=== PATIENT | female | born 1965 | race Caucasian/White ===

== ENCOUNTER → 2018-09-11 12:12 | Outpatient (ROUT) | payer OTHER, SELFPAY ==
[2018-09-11 12:18] LABS: Hematocrit 41.1 % (36-46); Hemoglobin 13.6 g/dL (12.0-16.0); Mean Corpuscular Hemoglobin 26.5 PG (26-34); Mean Corpuscular Volume 79.8 fL (80-100); Red Blood Cell Count 5.15 X10^6/uL (4.0-5.2); White Blood Cell Count 4.8 X10^3/uL (4.5-11.0)
[2018-09-11 12:19] LABS: Add Manual Diff / Slide Review NO; Basophils Percent Auto 1.4 % (0-2); Eosinophils Percent Auto 4.2 % (2-4); Lymphocytes Percent Auto 19.8 % (25-40); Mean Corpuscular HGB Conc 33.2 % (30-36); Monocytes Percent Auto 10.7 % (3-14); Neutrophils Percent Auto 63.9 % (50-75); Platelet Count 238 X10^3/uL (150-400); Red Cell Distribution Width 22.7 % (11.6-14.8)
[2018-09-11 12:20] LABS: Blood Urea Nitrogen 4 mg/dL (7-17); Calcium 8.5 mg/dL (8.4-10.2); Carbon Dioxide 32 mmol/L (22-32); Chloride 92 mmol/L (98-107); Estimated Glomerular Filt Rate > 60.0 mL/min (>60); Glucose 78 mg/dL (70-100); Phosphorous 3.7 mg/dL (2.5-4.5); Potassium 3.7 mmol/L (3.4-5.1); Sodium 133 mmol/L (137-145)
[2018-09-11 12:21] LABS: Alanine Aminotransferase 21 IU/L (9-52); Albumin 3.6 g/dL (3.5-5.0); Albumin Globulin Ratio 1.4 (1.0-2.8); Alkaline Phosphatase 92 U/L (38-126); Aspartate Aminotransferase 27 IU/L (14-36); Bilirubin Total 0.6 mg/dL (0.2-1.3); Globulin 2.5 g/dL (1.7-4.1); HEMOLYSIS 0 (0-50); Magnesium 1.9 mg/dL (1.6-2.3); Total Protein 6.1 g/dL (6.3-8.2); Triglycerides 57 mg/dL (35-150)
== END ==
PROVIDERS: Family Provider Internal Medicine; PCP Internal Medicine; Visit Provider Internal Medicine
DX: R10.13 Epigastric pain (principal); G35 Multiple sclerosis
CPT/HCPCS: 80053; 83735; 84100; 84478; 85025

== ENCOUNTER → 2018-09-24 14:34 | Outpatient (CLI) | payer OTHER, SELFPAY ==
[2018-09-24 15:32] LABS: Add Manual Diff / Slide Review NO; Basophils Absolute Auto 100 /uL (0-100); Basophils Percent Auto 1.2 % (0-2); Eosinophils Absolute Auto 600 /uL (0-450); Eosinophils Percent Auto 9.5 % (2-4); Hematocrit 39.1 % (36-46); Hemoglobin 13.3 g/dL (12.0-16.0); Lymphocytes Absolute Auto 1300 /uL (1100-4500); Lymphocytes Percent Auto 21.5 % (25-40); Mean Corpuscular HGB Conc 34.1 % (30-36); Mean Corpuscular Hemoglobin 27.1 PG (26-34); Mean Corpuscular Volume 79.3 fL (80-100); Monocytes Absolute Auto 600 /uL (0-900); Monocytes Percent Auto 9.6 % (3-14); Neutrophils Absolute Auto 3400 /uL (1500-7000); Neutrophils Percent Auto 58.2 % (50-75); Platelet Count 325 X10^3/uL (150-400); Red Blood Cell Count 4.93 X10^6/uL (4.0-5.2); Red Cell Distribution Width 20.4 % (11.6-14.8); White Blood Cell Count 5.9 X10^3/uL (4.5-11.0)
[2018-09-24 16:01] LABS: Alanine Aminotransferase 24 IU/L (9-52); Albumin 3.5 g/dL (3.5-5.0); Albumin Globulin Ratio 1.2 (1.0-2.8); Alkaline Phosphatase 126 U/L (38-126); Aspartate Aminotransferase 45 IU/L (14-36); Bilirubin Total 0.5 mg/dL (0.2-1.3); Blood Urea Nitrogen 6 mg/dL (7-17); Calcium 9.3 mg/dL (8.4-10.2); Carbon Dioxide 34 mmol/L (22-32); Chloride 94 mmol/L (98-107); Estimated Glomerular Filt Rate > 60.0 mL/min (>60); Globulin 2.9 g/dL (1.7-4.1); Glucose 94 mg/dL (70-100); HEMOLYSIS 33 (0-50); Magnesium 2.1 mg/dL (1.6-2.3); Phosphorous 3.4 mg/dL (2.5-4.5); Potassium 3.5 mmol/L (3.4-5.1); Sodium 136 mmol/L (137-145); Total Protein 6.4 g/dL (6.3-8.2); Triglycerides 134 mg/dL (35-150)
[2018-09-24 16:16] LABS: Anisocytosis 2+; Poikilocytosis 1+
[2018-09-24 16:17] LABS: Ovalocytes 1+
== END ==
PROVIDERS: PCP Internal Medicine; Visit Provider Internal Medicine
DX: R13.10 Dysphagia, unspecified (principal); G35 Multiple sclerosis
CPT/HCPCS: 36415; 80053; 83735; 84100; 84478; 85025

== ENCOUNTER → 2018-09-27 17:17 | Outpatient (CLI) | payer OTHER, SELFPAY ==
[2018-09-28 09:21] LABS: Enterococcus species Not Detected (Not Detect)
[2018-09-28 09:22] LABS: Acinetobacter baumannii Not Detected (Not Detect); Candida albicans Not Detected (Not Detect); Candida glabrata Not Detected (Not Detect); Candida krusei Not Detected (Not Detect); Candida parapsilosis Not Detected (Not Detect); Candida tropicalis Not Detected (Not Detect); E. coli Not Detected (Not Detect); Enterobacter cloacae complex Not Detected (Not Detect); Enterobacteriaceae species Not Detected (Not Detect); Haemophilus influenzae Not Detected (Not Detect); KPC (carbapenem-resist gene) Not Detected (Not Detect); Listeria monocytogenes Not Detected (Not Detect); Neisseria meningitidis Not Detected (Not Detect); Proteus species Not Detected (Not Detect); Pseudomonas aeruginosa Not Detected (Not Detect); Serratia marcescens Not Detected (Not Detect); Staphylococcus species Detected (Not Detect); Streptococcus agalactiae (Gr B Not Detected (Not Detect); Streptococcus pneumonia Not Detected (Not Detect); Streptococcus pyogenes (Gr A) Not Detected (Not Detect); Streptococcus species Not Detected (Not Detect)
[2018-09-28 09:23] LABS: Methicillin-resistant gene Detected (Not Detect)
== END ==
PROVIDERS: PCP Internal Medicine; Visit Provider Internal Medicine
DX: R13.10 Dysphagia, unspecified (principal); G35 Multiple sclerosis
CPT/HCPCS: 87040; 87077; 87150; 87186; 87205

== ENCOUNTER → 2018-10-04 11:51 | Outpatient (ROUT) | payer OTHER, SELFPAY ==
[2018-10-04 12:00] LABS: Add Manual Diff / Slide Review NO; Basophils Absolute Auto 100 /uL (0-100); Basophils Percent Auto 0.7 % (0-2); Eosinophils Absolute Auto 400 /uL (0-450); Eosinophils Percent Auto 5.2 % (2-4); Hematocrit 38.9 % (36-46); Hemoglobin 13.4 g/dL (12.0-16.0); Lymphocytes Absolute Auto 1600 /uL (1100-4500); Lymphocytes Percent Auto 20.7 % (25-40); Mean Corpuscular HGB Conc 34.5 % (30-36); Mean Corpuscular Hemoglobin 27.2 PG (26-34); Mean Corpuscular Volume 78.8 fL (80-100); Monocytes Absolute Auto 600 /uL (0-900); Monocytes Percent Auto 7.5 % (3-14); Neutrophils Absolute Auto 5200 /uL (1500-7000); Neutrophils Percent Auto 65.9 % (50-75); Platelet Count 430 X10^3/uL (150-400); Red Blood Cell Count 4.94 X10^6/uL (4.0-5.2); Red Cell Distribution Width 20.2 % (11.6-14.8); White Blood Cell Count 7.8 X10^3/uL (4.5-11.0)
[2018-10-04 12:15] LABS: Alanine Aminotransferase 19 IU/L (9-52); Albumin 3.6 g/dL (3.5-5.0); Albumin Globulin Ratio 1.2 (1.0-2.8); Alkaline Phosphatase 244 U/L (38-126); Aspartate Aminotransferase 17 IU/L (14-36); BUN Creatinine Ratio 11.4 (6-22); Bilirubin Total 0.4 mg/dL (0.2-1.3); Blood Urea Nitrogen 8 mg/dL (7-17); Calcium 9.2 mg/dL (8.4-10.2); Carbon Dioxide 33 mmol/L (22-32); Chloride 94 mmol/L (98-107); Estimated Glomerular Filt Rate > 60.0 mL/min (>60); Glucose 120 mg/dL (70-100); HEMOLYSIS < 15 (0-50); Magnesium 1.9 mg/dL (1.6-2.3); Phosphorous 3.2 mg/dL (2.5-4.5); Potassium 3.5 mmol/L (3.4-5.1); Sodium 137 mmol/L (137-145); Total Protein 6.6 g/dL (6.3-8.2); Triglycerides 144 mg/dL (35-150)
[2018-10-04 12:19] LABS: Vancomycin Trough 11.8 ug/mL (10-20)
[2018-10-04 12:23] LABS: Anisocytosis 1+
[2018-10-04 12:24] LABS: Poikilocytosis 1+
== END ==
PROVIDERS: PCP Internal Medicine; Visit Provider Internal Medicine
DX: R13.10 Dysphagia, unspecified (principal); G35 Multiple sclerosis
CPT/HCPCS: 80053; 80202; 83735; 84100; 84478; 85025

== ENCOUNTER 2018-10-06 07:44 | Day surgery (SDC) | payer OTHER, SELFPAY ==
[2018-10-06] VITALS (10 sets, daily range): BP systolic 95–129; BP diastolic 44–73; PULSE 59–115; RESP 11–20; TEMP 35.8–36.8; O2SAT 94–99; BMI 40.3; BMI 18.3
--- NOTE | 2018-10-06 | DI.RAD.S_ITS ---
PROCEDURE: XR CHEST FOR PICC 1V INDICATIONS: PICC PLACEMENT COMPARISON: [facility], , CHEST 1 VIEW, 05/20/2017, 16:03. FINDINGS: PICC was placed by the intravenous therapy team from the right side. Fluoroscopic spot film demonstrates tip of PICC projecting to the SVC. IMPRESSION: Tip of PICC line projects at the superior vena cava. Dictated by: Vincent Infante M.D. on 10/06/2018 at 18:53 Approved by: Vincent Infante M.D. on 10/06/2018 at 18:55
[2018-10-06 09:08] LABS: Add Manual Diff / Slide Review NO; Basophils Absolute Auto 100 /uL (0-100); Basophils Percent Auto 1.5 % (0-2); Eosinophils Absolute Auto 600 /uL (0-450); Eosinophils Percent Auto 7.7 % (2-4); Hematocrit 35.7 % (36-46); Hemoglobin 12.4 g/dL (12.0-16.0); Lymphocytes Absolute Auto 2500 /uL (1100-4500); Mean Corpuscular HGB Conc 34.8 % (30-36); Mean Corpuscular Hemoglobin 27.5 PG (26-34); Monocytes Absolute Auto 700 /uL (0-900); Monocytes Percent Auto 8.4 % (3-14); Neutrophils Absolute Auto 3900 /uL (1500-7000); Neutrophils Percent Auto 50.4 % (50-75); Platelet Count 434 X10^3/uL (150-400); Red Blood Cell Count 4.52 X10^6/uL (4.0-5.2); Red Cell Distribution Width 19.1 % (11.6-14.8); White Blood Cell Count 7.7 X10^3/uL (4.5-11.0)
[2018-10-06 09:23] LABS: Alanine Aminotransferase 12 IU/L (9-52); Albumin 3.7 g/dL (3.5-5.0); Albumin Globulin Ratio 1.1 (1.0-2.8); Alkaline Phosphatase 198 U/L (38-126); Aspartate Aminotransferase 16 IU/L (14-36); Bilirubin Total 0.3 mg/dL (0.2-1.3); Blood Urea Nitrogen 6 mg/dL (7-17); Calcium 9.1 mg/dL (8.4-10.2); Carbon Dioxide 32 mmol/L (22-32); Chloride 97 mmol/L (98-107); Estimated Glomerular Filt Rate > 60.0 mL/min (>60); Globulin 3.3 g/dL (1.7-4.1); Glucose 116 mg/dL (70-100); HEMOLYSIS < 15 (0-50); Potassium 3.3 mmol/L (3.4-5.1); Sodium 137 mmol/L (137-145)
[2018-10-06] MEDS: LORazepam 2 MG/ML INJ 1 MG IV (09:34)
--- NOTE | 2018-10-06 10:20 | PC.NURSE ---
1000- to room 105 for PICC placement with procedural sedation. Pt is AAO x3 and making needs known with clear/logical speech. Pt noted to have spastic chorea movements to all extremities and neck. Pt reports hx of MS. Baseline VS: T98.[address] RR 19 BP 117/60 (69) SPO2 97% RA ETCO2 41. Call placed to Dr. Santos requesting orders for procedural sedation. Dr. Santos to bedside ~[address]ICC in OR under anesthesia during already planned procedure. Pt transported back to acute care room in no acute distress via pt bed by coordinator and student nurses.
[2018-10-06] MEDS: LACTATED RINGERS 1,000 ML 100 ML IV (11:10)
[2018-10-06] MEDS: clonazePAM 0.5 MG TABLET 3 MG PO (12:54)
[2018-10-06] MEDS: BACLOFEN 10 MG TABLET 20 MG PO (12:55)
--- NOTE | 2018-10-06 13:00 | P.HP_ITS ---
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 Patient basically re ceives all of her nutrition and some of her medication through her IV. She has difficulty swallowing due to MS. Her gait stomach does not empty normally. She has been through. IV being fed via feeding tubes but those have failed and she continued to have aspiration. Therefore if she receives almost all of her nutrition now via IV and a Groshong catheter. The present catheter has been in over a year placed in April of 2017. She cares for at home and her and her a take care of the line. Recently she developed low-grade temperatures. She was cultured and found to have Staph. She has been treated with vancomycin but her low-grade temperatures have been completely gone away. Her line and is now having trouble aspirating and it is probably time to replace the line. It is been repaired twice. Patient History Medical History Anxiety (Acute) Aspiration into airway (Acute) Chronic fatigue (Acute) Depression (Acute) Difficulty swallowing (Acute) Easy bruisability (Acute) Frequent UTI (Acute) H/O: hysterectomy (Acute) History of muscle spasm (Acute) Hospice care (Acute) Multiple sclerosis (Acute ~2003) Pain (Acute) Pancreatitis (Acute) Problem with intravenous catheter (Acute) Syncope (Acute) Wheelchair bound (Acute) Surgical History Hx of cholecystectomy (Acute ~2008) Status post insertion of percutaneous endoscopic gastrostomy (PEG) tube (Acute) Social History household members: spouse Smoking Status: Current every day smoker alcohol intake: former Family & Social History Social History: household members spouse Safety & Behavioral: Feels Safe in Current Yes Environment Been Physically Hurt or No Threatened By a Person Suicidal Ideation Description None Suicide Plan Description No Plan Tobacco & Substance use: Tobacco type cigarettes Smoking Status Current every day smoker Smoking packs per day 1 alcohol intake former Substance Use Type marijuana Meds Home Medications Medication Instructions Recorded Confirmed Type [LIORESAL(BACLOFEN)] 20 mg PO BID #0 09/29/12 History albuterol sulfate [Ventolin HFA] 1 puff INH Q4HP #0 09/29/12 10/06/18 History POLYETHYLENE GLYCOL 3350 17 gm PO QDAY #0 02/05/16 History hydrochlorothiazide 25 mg PO QDAY #0 tab 02/05/16 History hydromorphone 16 mg PO Q4HP PRN #0 02/05/16 History lorazepam [Lorazepam Intensol] 1 ml PO PRN #0 02/05/16 History sennosides [senna] 10 mg PO #0 02/05/16 History [FENTANYL PATCH] 300 mcg TOPICAL Q72H #0 05/20/17 History baclofen 1 tab PO Q6H 10/06/18 10/06/18 History Allergies Allergy/AdvReac Type Severity Reaction Status Date / Time alteplase [ALTEPLASE] Allergy Severe severe Unverified 08/05/17 12:08 cardiac and resp. problems legumes [LEGUMES] Allergy Severe ANAPHYLAXIS Unverified 08/05/17 12:08 peanut Allergy Severe Anaphylaxis Verified 10/06/18 10:55 Sulfa (Sulfonamide Allergy Severe SOB/HIVES Unverified 08/05/17 12:08 Antibiotics) [SULFA (SULFONAMIDE ANTIBIOTICS)] latex [LATEX] Allergy Mild LONG-TERM Unverified 08/05/17 12:08 USE-RASH heparin [HEPARIN] AdvReac Intermediate HEART Unverified 08/05/17 12:08 RACE, 'BUTTERFLIES IN MY CHEST' Review of Systems Review of Systems Wheelchair-bound. Unable to walk. Severe muscle spasms controlled with medications. Never really still except when sleeping. No chest pain or heart problems that she is aware. No recent pulmonary infections. She has intermittent urinary tract infections. She may takes medicine for bladder spasms. Exam Vital Signs (past 8 hours): - 10/06/18 10:03 Pulse Rate 115 H Respiratory Rate 11 L Blood Pressure 117/60 Pulse Oximetry 97 Narrative Exam Narrative: Very pleasant and upbeat today. No apparent distress. She is alert and oriented x3. Her lungs are clear to auscultation no rales or rhonchi. Heart regular rate and rhythm without murmur gallop. No redness at the insertion site of the Groshong catheter. Objective Labs Result Diagrams: 10/06/18 08:58 10/06/18 08:58 Labs: Laboratory Results - last 24 hr 10/06/18 10/06/18 08:58 08:58 WBC 7.7 RBC 4.52 Hgb 12.4 Hct 35.7 L MCV 79.0 L MCH 27.5 MCHC 34.8 RDW 19.1 H Plt Count 434 H Neut % (Auto) 50.4 Lymph % (Auto) 32.0 [place] % (Auto) 8.4 Eos % (Auto) 7.7 H Baso % (Auto) 1.5 Neut # (Auto) 3900 Lymph # (Auto) 2500 [place] # (Auto) 700 Eos # (Auto) 600 H Baso # (Auto) 100 Sodium 137 Potassium 3.3 L Chloride 97 L Carbon Dioxide 32 BUN 6 L Creatinine 0.60 Estimated GFR > 60.0 BUN/Creatinine Ratio 10.0 Glucose 116 H Calcium 9.1 Total Bilirubin 0.3 AST 16 ALT 12 Alkaline Phosphatase 198 H Total Protein 7.0 Albumin 3.7 Globulin 3.3 Albumin/Globulin Ratio 1.1 Assessment & Plan Assessment & Plan narrative: Because of patient's very complicated medical problems, a complete lack of peripheral IV sites, she was brought in early for placement of a PICC line. Unfortunately her spasmodic condition precluded doing that even under sedation and so she will be taken to the operating room put to sleep. Unfortunately we must continue to use the Groshong until we have additional IV access. At that time of PICC line will be placed and we will remove the Groshong. At some future point we will replace the Groshong. We will complete her treatment of her Staph bacteremia. I have discussed this with her. Very few risks except for local infection of removing her Groshong at this time. All questions were answered. Quality VTE Deep Vein Thrombosis/Pulmonary Embolism Present on Admission: No
--- NOTE | 2018-10-06 13:00 | PM.PREOP ---
Pre-operative Note Interval Note History & Physical reviewed/Exam performed by Physician: Yes Changes to H&P: No
[2018-10-06] MEDS: PANTOPRAZOLE 40 MG VIAL IV (13:09)
[2018-10-06] MEDS: LACTATED RINGERS 1,000 ML 42 ML IV (15:39)
--- NOTE | 2018-10-06 16:12 | SUR.OPER ---
Supine on padded OR bed, head on pillow, arms secured on padded arm boards at <90 degrees abduction, legs uncrossed, safety belt at thigh, tape over blanket over lower legs.
--- NOTE | 2018-10-06 16:39 | PC.NURSE ---
Addendum entered by Heather Sanchez R.N. 10/06/18 19:51: Dr. Santos in to see pt and answers any further questions. Discharge orders now available and visible. These were processed and reviewed with pt and pt's spouse by Valerie morales RN. Pt left hospital with spouse via wheelchair in stable condition. Addendum entered by Heather Sanchez R.N. 10/06/18 19:42: Dr. Santos phones this abstract writer to state discharging pt to home, but is having difficulty generating this via computer. Verbal order to discharge to home received by this abstract writer. Attempted to locate insertion/care pamphlet from PICC placement without success. Printed PICC care information via [employer] and provided to pt and pt's spouse. Placed new cap on lumen accessed via surgery for iv fluids. Pt reports is connecting self to own iv fluids immediately. From web outlook email, also printed web site for [employer] picc video and provided to pt and pt's spouse for pt to review. Pt is awake, alert, conversant and desires to go home. Vital signs stable. Valerie Morales RN, reviewed discharge teaching materials with pt and pt's spouse in written and verbal format. Per Dr. Santos, pt is to resume normal meds, tpn, and vancomycin. Pt verbalizes understanding. Addendum entered by Heather Sanchez R.N. 10/06/18 19:08: Pt returned from PACU to room 204 awake, alert, conversant stating, I want to go home. No discharge orders yet in system, but pt assures this abstract writer Dr. Steinberg is working on it. Pt's spouse and service dog are in room. Offered pt meds that were not given while pt in surgery and pt declines. Pt explains to this abstract writer has nursing care available at home. Dual lumen PICC line RUE with dry and intact dressing. Original Note: Pt to O.R. @ beginning of shift.
[2018-10-06] MEDS: LIDOCAINE 1% W/EPI INJ 4 ML INJ (18:16)
[2018-10-06] MEDS: fentaNYL 100 MCG/2 ML INJ 50 MCG IV (18:45)
--- NOTE | 2018-10-06 18:57 | PM.OP.1 ---
Operative Date/Time/Diagnoses Date of procedure: 10/06/18 Time of procedure: 18:29 Pre-op diagnosis: Infected groshong catheter with Staph bacteremia Post-op diagnosis: same Procedure & Clinicians Procedure: Placement of a dual lumen PICC line and removal of the Groshong catheter. Same procedure as scheduled: Yes Indications: Need for IV access S patient is reliant on a central line for TPN for nutrition and for any other drug she needs. Surgeon: Naresh Santos Click Yes if Unassisted: Yes Anesthesia Type: MAC +/- Operative Notes Findings: Very difficult to get the tip of the dual lumen PICC to go into the superior vena cava. Groshong removed without difficulty. Closure Type: primary Specimen(s): none sent Applied: catheter (Dual lumen PICC in right basilic) Estimated Blood Loss (mL): 30 Procedure in detail: The PICC line nurse attempted placement of a catheter in the left arm. This was nonproductive and then placement in the right side was attempted. There was difficulty threading the guidewire. Therefore I scrubbed in and was able to with the nurse's assistance placed the guidewire into the vein appropriate vein. The needle was removed and the introducer and dilator were passed over it. Guidewire and the introducer were removed and the catheter had been cut and was threaded through the introducer. Under fluoroscopy the visualization the catheter persistently went into the neck. Multiple manipulations and passage of guidewires into the catheter were attempted before we were able to succeed in getting the tip to go into the superior vena cava. Both lines aspirated and then were flushed with heparinized saline. The line was secured. The area around the Groshong was prepped and draped. Local anesthetic was infiltrated. Incision was made directly over the palpable cuff. The cuff was dissected out from surrounding structures and the catheter removed without difficulty. The tract was ligated with a 3 0 Vicryl suture. The skin was loosely reapproximated with interrupted 4 0 vertical mattress nylon sutures. Dressing was applied. Patient was awakened and taken to the recovery area in good condition. Complications: none Condition: stable Disposition: PACU Plan for aftercare: Discharge later today
--- NOTE | 2018-10-06 19:37 | P.DS_ITS ---
History of Present Illness Chief complaint: [id number] updated to direct admit/OBS manager requirements Narrative: The patient is a woman who has Staph bacteremia presumed secondary to a Groshong catheter that has been in for over a year. Patient basically rec eives all of her nutrition and some of her medication through her IV. She has difficulty swallowing due to MS. Her gait stomach does not empty normally. She has been through. IV being fed via feeding tubes but those have failed and she continued to have aspiration. Therefore if she receives almost all of her nutrition now via IV and a Groshong catheter. The present catheter has been in over a year placed in April of 2017. She cares for at home and her and her a take care of the line. Recently she developed low-grade temperatures. She was cultured and found to have Staph. She has been treated with vancomycin but her low-grade temperatures have been completely gone away. Her line and is now having trouble aspirating and it is probably time to replace the line. It is been repaired twice. Discharge Providers Date of admission: 10/06/18 07:44 Discharge Date: 10/06/18 Primary care physician: Sterling Bhatt MD Consults: 10/06/18 08:00 Consult to PICC Line RN NOW Comment: 10/06/18 10:22 Consult to Respiratory Therapy Evaluate & Treat Comment: Physician Instructions: Evaluate and treat Discharge provider: Naresh Santos MD Summary Discharge Diagnosis: MS with severe alteration of body function essentially making her a paraplegic. Severe muscle spasms. Bladder spasms Bacteremia secondary to Groshong catheter present at admission Chronic pain treated with chronic narcotics Chronic aspiration when taking p.o.. Poor gastric emptying chronic [place] on TPN to provide 100% of nutritional requirements Limited peripheral IV access requiring central line Mild chronic anemia Hospital Course: With great difficulty a PICC line was placed and the Groshong was removed. She was discharged the same days admission. Status at Discharge Cognitive/behavioral status at discharge: oriented Functional status at discharge: wheelchair bound Overall status at discharge: patient is back to baseline Time Spent with Patient Less than 30 minutes Time spent discussing smoking cessation with patient: 3 to 10 minutes Exam Vital Signs (past 8 hours): - 10/06/18 11:35 10/06/18 15:28 10/06/18 18:29 Temperature 97.4 F L 97.3 F L 96.5 F L Pulse Rate 105 H 59 L 80 Respiratory Rate 20 18 20 Blood Pressure 104/67 129/72 104/62 Pulse Oximetry 97 96 98 10/06/18 18:34 10/06/18 18:40 10/06/18 18:45 Temperature Pulse Rate 82 82 69 Respiratory Rate 12 16 16 Blood Pressure 95/44 L 97/63 102/70 Pulse Oximetry 94 94 97 10/06/18 18:55 10/06/18 19:15 Temperature 97.1 F L Pulse Rate 85 76 Respiratory Rate 15 18 Blood Pressure 107/72 100/55 L Pulse Oximetry 97 94 Oxygen Delivery Method Room Air Narrative Exam Narrative: Lines are in good shape. She is alert and desires to go home Objective Labs Result Diagrams: 10/06/18 08:58 10/06/18 08:58 Labs: Laboratory Results - last 24 hr 10/06/18 10/06/18 08:58 08:58 WBC 7.7 RBC 4.52 Hgb 12.4 Hct 35.7 L MCV 79.0 L MCH 27.5 MCHC 34.8 RDW 19.1 H Plt Count 434 H Neut % (Auto) 50.4 Lymph % (Auto) 32.0 [place] % (Auto) 8.4 Eos % (Auto) 7.7 H Baso % (Auto) 1.5 Neut # (Auto) 3900 Lymph # (Auto) 2500 [place] # (Auto) 700 Eos # (Auto) 600 H Baso # (Auto) 100 Sodium 137 Potassium 3.3 L Chloride 97 L Carbon Dioxide 32 BUN 6 L Creatinine 0.60 Estimated GFR > 60.0 BUN/Creatinine Ratio 10.0 Glucose 116 H Calcium 9.1 Total Bilirubin 0.3 AST 16 ALT 12 Alkaline Phosphatase 198 H Total Protein 7.0 Albumin 3.7 Globulin 3.3 Albumin/Globulin Ratio 1.1 Discharge Plan Discharge Plan Patient Disposition: Home Discharge comment: Use your new PICC line in a similar way to your Groshong. There were 2 lumens. There little shut off snaps that you will see. This line is not sewn in so must be carefully manipulated so it does not pull out. The dressing should be changed by your nurses tomorrow. Discharge Med Rec/Prescriptions Prescriptions: Continued [LIORESAL(BACLOFEN)] 20 mg PO BID Qty: 0 RF: 0 albuterol sulfate [Ventolin HFA] 90 MCG/PUFF HFA aerosol inhaler 1 puff INH Q4HP Qty: 0 RF: 0 hydrochlorothiazide 25 MG tablet 25 mg PO QDAY Qty: 0 RF: 0 POLYETHYLENE GLYCOL 3350 17 gm PO QDAY Qty: 0 RF: 0 hydromorphone 4 MG tablet 16 mg PO Q4HP PRNQty: 0 RF: 0 lorazepam [Lorazepam Intensol] 2 MG/1 ML concentrate 1 ml PO PRN (Reason: Spasms) Qty: 0 RF: 0 sennosides [senna] 8.6 MG tablet 10 mg PO Qty: 0 RF: 0 [FENTANYL PATCH] 300 mcg Topical Q72H Qty: 0 RF: 0 baclofen 20 mg tablet 1 tab PO Q6H RF: 0 oxybutynin chloride 10 mg tablet extended release 24hr 1 tab PO DAILY RF: 0 Follow up/Referrals: Sterling Bhatt MD [Primary Care Provider] - Naresh Santos MD [Physician] - As previously scheduled (Please call my office to schedule an appointment to see me in about 10-12 days to get her stitches out. As an alternative, your nurses may be able to take them out.) Provider Discharge Instructions Diet comment: Resume your pre admission TPN Activity: Pre-admission level Other treatments: Resume her pre-admission medications. This includes your vancomycin. Skin/Wound/Dressing Care Report to your healthcare provider any signs of infection, such as:: chills, fever, night sweats, increased pain, unusual drainage and unusual redness Dressing: Keep a Band-Aid or similar dressing on the old Groshong site. The dressing on your PICC line should probably be changed tomorrow. Great caution should be taken because this line is not sewn in. Visit Report/Discharge Packet Instructions: [facility]: Wound Care Stand Alone Forms: Surgery Discharge Discharge Data Primary Care Provider: Sterling Bhatt Attending Provider: Naresh Santos Admit Date/Time: 10/06/18 07:44 Quality VTE Deep Vein Thrombosis/Pulmonary Embolism Present on Admission: No
== END 2018-10-06 19:53 | disposition home or self-care (01) ==
LOC: AC 13:43 → OR 10-07 14:41
PROVIDERS: PCP Internal Medicine; Visit Provider Specialist
PROC: (CPT 36590; principal; 2018-10-06 16:00)
PROC: (CPT 36589; 2018-10-06 16:00)
DX: T80.219A Unspecified infection due to central venous catheter, initial encounter (principal); R78.81 Bacteremia; B95.8 Unspecified staphylococcus as the cause of diseases classified elsewhere; F41.9 Anxiety disorder, unspecified; G35 Multiple sclerosis; F17.210 Nicotine dependence, cigarettes, uncomplicated
CPT/HCPCS: 36589; 36415; 36573; 36590; 76000; 80053; 82962; 85025; G0378; C9113; G0379; J2060; J2250; J2704; J3010

== ENCOUNTER → 2018-10-11 13:40 | Outpatient (ROUT) | payer OTHER, SELFPAY ==
[2018-10-06 12:01] VITALS: BMI 40.3
[2018-10-11 13:48] LABS: Add Manual Diff / Slide Review NO; Basophils Absolute Auto 100 /uL (0-100); Eosinophils Absolute Auto 700 /uL (0-450); Eosinophils Percent Auto 10.5 % (2-4); Hematocrit 38.2 % (36-46); Hemoglobin 12.8 g/dL (12.0-16.0); Lymphocytes Absolute Auto 1800 /uL (1100-4500); Lymphocytes Percent Auto 26.1 % (25-40); Mean Corpuscular HGB Conc 33.5 % (30-36); Mean Corpuscular Hemoglobin 26.9 PG (26-34); Mean Corpuscular Volume 80.4 fL (80-100); Monocytes Absolute Auto 600 /uL (0-900); Monocytes Percent Auto 8.1 % (3-14); Neutrophils Absolute Auto 3700 /uL (1500-7000); Neutrophils Percent Auto 54.3 % (50-75); Platelet Count 428 X10^3/uL (150-400); Red Blood Cell Count 4.76 X10^6/uL (4.0-5.2); Red Cell Distribution Width 18.5 % (11.6-14.8); White Blood Cell Count 6.9 X10^3/uL (4.5-11.0)
[2018-10-11 14:00] LABS: Alanine Aminotransferase 35 IU/L (9-52); Albumin 3.6 g/dL (3.5-5.0); Albumin Globulin Ratio 1.2 (1.0-2.8); Alkaline Phosphatase 246 U/L (38-126); Aspartate Aminotransferase 104 IU/L (14-36); BUN Creatinine Ratio 7.1 (6-22); Bilirubin Total 0.4 mg/dL (0.2-1.3); Blood Urea Nitrogen 5 mg/dL (7-17); Calcium 9.2 mg/dL (8.4-10.2); Carbon Dioxide 34 mmol/L (22-32); Chloride 96 mmol/L (98-107); Estimated Glomerular Filt Rate > 60.0 mL/min (>60); Globulin 2.9 g/dL (1.7-4.1); Glucose 92 mg/dL (70-100); HEMOLYSIS < 15 (0-50); Potassium 3.9 mmol/L (3.4-5.1); Sodium 139 mmol/L (137-145); Total Protein 6.5 g/dL (6.3-8.2)
[2018-10-11 14:08] LABS: Vancomycin Trough 15.7 ug/mL (10-20)
== END ==
PROVIDERS: PCP Internal Medicine; Visit Provider Internal Medicine
DX: R13.10 Dysphagia, unspecified (principal); G35 Multiple sclerosis
CPT/HCPCS: 80053; 80202; 85025

== ENCOUNTER → 2018-10-22 15:20 | Outpatient (CLI) | payer OTHER, SELFPAY ==
[2018-10-18 15:57] VITALS: BMI 40.3
[2018-10-22 15:47] LABS: Add Manual Diff / Slide Review NO; Basophils Absolute Auto 100 /uL (0-100); Eosinophils Absolute Auto 1000 /uL (0-450); Eosinophils Percent Auto 13.7 % (2-4); Hematocrit 40.6 % (36-46); Hemoglobin 13.6 g/dL (12.0-16.0); Lymphocytes Absolute Auto 1900 /uL (1100-4500); Lymphocytes Percent Auto 25.4 % (25-40); Mean Corpuscular HGB Conc 33.4 % (30-36); Mean Corpuscular Hemoglobin 27.2 PG (26-34); Mean Corpuscular Volume 81.3 fL (80-100); Monocytes Absolute Auto 600 /uL (0-900); Monocytes Percent Auto 8.1 % (3-14); Neutrophils Absolute Auto 3800 /uL (1500-7000); Neutrophils Percent Auto 51.8 % (50-75); Platelet Count 300 X10^3/uL (150-400); Red Cell Distribution Width 17.4 % (11.6-14.8); White Blood Cell Count 7.4 X10^3/uL (4.5-11.0)
[2018-10-22 16:02] LABS: Alanine Aminotransferase 17 IU/L (9-52); Albumin Globulin Ratio 1.3 (1.0-2.8); Alkaline Phosphatase 120 U/L (38-126); Aspartate Aminotransferase 29 IU/L (14-36); BUN Creatinine Ratio 8.6 (6-22); Bilirubin Total 0.3 mg/dL (0.2-1.3); Blood Urea Nitrogen 6 mg/dL (7-17); Calcium 9.5 mg/dL (8.4-10.2); Carbon Dioxide 34 mmol/L (22-32); Chloride 97 mmol/L (98-107); Estimated Glomerular Filt Rate > 60.0 mL/min (>60); Glucose 84 mg/dL (70-100); HEMOLYSIS < 15 (0-50); Magnesium 2.1 mg/dL (1.6-2.3); Potassium 3.9 mmol/L (3.4-5.1); Sodium 139 mmol/L (137-145); Triglycerides 90 mg/dL (35-150)
== END ==
PROVIDERS: PCP Internal Medicine; Visit Provider Specialist
DX: R13.10 Dysphagia, unspecified (principal); G35 Multiple sclerosis
CPT/HCPCS: 80053; 83735; 84100; 84478; 85025; 87040

== ENCOUNTER 2018-11-18 09:03 | Day surgery (SDC) | payer OTHER, SELFPAY ==
[2018-10-18 15:57] VITALS: BMI 40.3
--- NOTE | 2018-11-18 | DI.RAD.S_ITS ---
PROCEDURE: FL CATHETER PATENCY COMPARISON: [facility], CR, CHEST 1 VIEW, 06/19/2015, 18:08. [facility], RF, CATHETER PATENCY, 11/05/2015, 10:25. [facility], CR, CHEST 1 VIEW, 03/05/2017, 13:57. [facility], CR, CHEST 1 VIEW, 05/20/2017, 16:03. [facility], CT, PE STUDY (CTA CHEST), 01/17/2012, 13:22. [facility], CR, XR CHEST FOR PICC 1V, 10/06/2018, 17:06. INDICATIONS: GROSHONG PLACEMENT , VENOUS PATENCY FINDINGS: 6 intraoperative image sequences demonstrate obtained during contrast injection through a catheter via the left jugular vein. There is opacification of a prominent vein along the left spinal border, most likely the prominent left intercostal vein. No contrast flow into the left brachiocephalic vein or superior vena cava. Injection of the right PICC also demonstrates opacification of the prominent left intercostal vein without opacification of the superior vena cava. The findings are suggested of superior vena cava obstruction. IMPRESSION: 1. 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 2. Dilated left intercostal vein likely the development of venous collateral flow. Dictated by: Lan Wilson M.D. on 11/18/2018 at 13:24 Approved by: Lan Wilson M.D. on 11/18/2018 at 14:00
--- NOTE | 2018-11-18 | DI.RAD.S_ITS ---
PROCEDURE: XR CHEST 1V INDICATIONS: POST GROSHONG ATTEMPT TECHNIQUE: One view of the chest was acquired. COMPARISON: [facility], CT, PE STUDY (CTA CHEST), 01/17/2012, 13:22. [facility], CR, CHEST 1 VIEW, 03/05/2017, 13:57. [facility], RF, FL CATHETER PATENCY, 11/18/2018, 12:10. [facility], CR, XR CHEST FOR PICC 1V, 10/06/2018, 17:06. [facility], CR, CHEST 1 VIEW, 05/20/2017, 16:03. FINDINGS: Surgical changes and devices: There is a right PICC with the tip in air of SVC. Lungs and pleura: No pneumothorax. There is a 1.1 cm irregular hyperdense nodule in the left upper lung zone, most likely an old granuloma. Mediastinum: Mediastinal contours appear normal. Heart size is normal. Bones and chest wall: No suspicious bony lesions. Overlying soft tissues appear unremarkable. IMPRESSION: No pneumothorax. Dictated by: Lan Wilson M.D. on 11/18/2018 at 17:30 Approved by: Lan Wilson M.D. on 11/18/2018 at 17:33
[2018-11-18 09:30] VITALS: BP 121/54; PULSE 109; RESP 17; TEMP 36.9; O2SAT 99; BMI 18.3
[2018-11-18] MEDS: LACTATED RINGERS 1,000 ML 100 ML IV (09:51)
[2018-11-18] MEDS: VANCOMYCIN 1,000 MG/200 ML PIGGYBACK 200 MG IV (10:03)
--- NOTE | 2018-11-18 11:18 | PM.HP.1 ---
History of Present Illness Date Patient Seen: 11/18/18 Time Patient Seen: 11:18 Chief complaint: [id number]/IV Access for Nutrition Narrative: The patient is a woman with multiple sclerosis. She is unable to eat due to the side effects. She receives fluid and nutrition through a central line. Recently she had a central line removed because of MRSA in her blood stream. She was treated and cleared the infection. She is now brought back to replace this line. In the interim she has been fed through a PICC line which is only a temporary measure. Patient History Medical History Eczema (Acute) GERD (gastroesophageal reflux disease) (Acute) Pneumonia (Acute) Anxiety (Chronic) Aspiration into airway (Chronic) Chronic fatigue (Chronic) Depression (Chronic) Difficulty swallowing (Chronic) Easy bruisability (Chronic) Frequent UTI (Chronic) History of muscle spasm (Chronic) Hospice care (Chronic) Multiple sclerosis (Chronic ~2003) Pain (Chronic) Wheelchair bound (Chronic) Pancreatitis (Resolved) Problem with intravenous catheter (Resolved) Syncope (Resolved) H/O: hysterectomy (Inactive ~2001) Surgical History History of 2 sections (Acute) History of removal of ovarian cyst (Acute ~03/1982) Status post insertion of percutaneous endoscopic gastrostomy (PEG) tube (Resolved) Hx of cholecystectomy (Inactive ~2008) Social History household members: spouse Smoking Status: Current every day smoker alcohol intake: never Family & Social History Social History: household members spouse Tobacco & Substance use: Tobacco type cigarettes Smoking Status Current every day smoker alcohol intake never Substance Use Type marijuana Meds Home Medications Medication Instructions Recorded Confirmed Type albuterol sulfate [Ventolin HFA] 1 puff INH Q4HP #0 09/29/12 11/16/18 History hydrochlorothiazide 25 mg PO QDAY #0 tab 02/05/16 11/18/18 History lorazepam [Lorazepam Intensol] 1 ml PO PRN PRN #0 02/05/16 11/18/18 History fentanyl 300 mcg TRANSDERMAL Q72H #0 05/20/17 11/18/18 History baclofen 20 mg PO Q6H #0 10/06/18 11/18/18 History oxybutynin chloride 1 tab PO DAILY 10/06/18 11/18/18 History clonazepam 2.5 mg PO TID 11/16/18 11/18/18 History estradiol 1 patch TRANSDERMAL QWEEK 11/16/18 11/18/18 History fentanyl citrate 200 mcg SUBLINGUAL QID PRN 11/18/18 11/18/18 History pantoprazole [Protonix] 40 mg IV TPN/PPN 11/18/18 11/18/18 History Allergies Allergy/AdvReac Type Severity Reaction Status Date / Time alteplase [ALTEPLASE] Allergy Severe severe Verified 11/18/18 09:42 cardiac and resp. problems legumes [LEGUMES] Allergy Severe ANAPHYLAXIS Verified 11/18/18 09:42 peanut Allergy Severe Anaphylaxis Verified 11/18/18 09:42 Sulfa (Sulfonamide Allergy Severe SOB/HIVES Verified 11/18/18 09:42 Antibiotics) [SULFA (SULFONAMIDE ANTIBIOTICS)] latex [LATEX] Allergy Mild LONG-TERM Verified 11/18/18 09:42 USE-RASH heparin [HEPARIN] AdvReac Intermediate HEART Verified 11/18/18 09:42 RACE, 'BUTTERFLIES IN MY CHEST' Review of Systems Review of Systems No breathing trouble at this time. No chest pain or heart trouble. No black or bloody bowel movements. Exam Vital Signs (past 8 hours): - 11/18/18 09:30 Temperature 98.4 F Pulse Rate 109 H Respiratory Rate 17 Blood Pressure 121/54 L Pulse Oximetry 99 Narrative Exam Narrative: Operative no apparent distress. No rashes on her chest or neck. Lungs are clear to auscultation no rales or rhonchi. Heart regular rate and rhythm without murmur gallop. Patient is alert and oriented. Speech is a bit garbled at times because of her MS and muscle spasms that she has. Assessment & Plan Assessment & Plan narrative: Patient with multiple sclerosis here for placement of a Groshong. I have discussed the procedure with her including risks of bleeding, infection, lung collapse, and DVT with possible arm edema or pulmonary embolism. She appears to understand wishes to proceed
--- NOTE | 2018-11-18 11:21 | PM.PREOP ---
Pre-operative Note Interval Note History & Physical reviewed/Exam performed by Physician: Yes Changes to H&P: No H&P completed within 30 days and has changed as indicated here:: Patient is receiving both IV vancomycin and Ancef due to her history of MRSA infection recently and the need to cover routine skin dimitri
[2018-11-18] MEDS: CEFAZOLIN 2 GM/100 ML FROZ.PIGGY IV (11:22)
[2018-11-18] MEDS: LIDOCAINE 1% 30 ML INJ INJ (11:59)
[2018-11-18] MEDS: HEPARIN 5,000 UNIT, SODIUM CHLORIDE 0.9% 50 ML IV (11:59)
[2018-11-18] MEDS: IOPAMIDOL 50 ML VIAL INJ ×2 (12:08→12:17)
[2018-11-18 13:03] VITALS: BP 118/71; PULSE 61; RESP 8; TEMP 36.3; O2SAT 98
[2018-11-18 13:08] VITALS: BP 122/67; PULSE 60; RESP 6; O2SAT 97
[2018-11-18 13:13] VITALS: BP 120/67; PULSE 52; RESP 7; O2SAT 99
--- NOTE | 2018-11-18 13:15 | PM.OP.1 ---
Operative Date/Time/Diagnoses Date of procedure: 11/18/18 Time of procedure: 13:00 Pre-op diagnosis: Multiple sclerosis with reliance on a central line for nutrition and fluids. Unable to tolerate p.o. due to aspiration and lack of normal function of her GI tract Procedure & Clinicians Procedure: Attempted placement of Groshong catheter. Venogram. Same procedure as scheduled: No Indications: Due to intraoperative findings venogram performed. 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 There is alternative blood flow into the left ana azygous vein from both the left and right subclavian systems. Closure Type: primary Specimen(s): none sent Prosthetic devices, grafts, tissues, transplants, or devices: None placed Estimated Blood Loss (mL): 20 Blood products transfused: none Procedure in detail: The patient was placed supine on the operating room table and underwent general LMA anesthesia. A roll was placed between her shoulder blades. She was prepped and draped in the usual fashion. Anesthetic was infiltrated under her left clavicle and a small leila was made in the skin. Blood immediately began to surge from this small leila which was highly unusual. I sutured the area in order to bring it under control. When I did so there was venous engorgement on the chest up into the neck. This may be concerned that the subclavian vein might be thrombosed. I therefore decided to place the Groshong in the left internal jugular. A 22 gauge finer needle was employed and I was able to place the needle into the internal jugular very quickly. A small leila was made in the neck skin and the larger needle inserted through this neck into the subclavian vein using the finer needle as a guide. I encountered blood returned very quickly. The find her needle was removed and the guidewire passed through the new larger needle. This needle was removed leaving the guidewire in place. Fluoroscopy was then obtained and there was an unusual curl of the guidewire in the left chest. I tried to manipulate this guidewire to cross to the right but it would not do so initially. Then it suddenly Sprang through into a vessel to the left of midline. Straight adjacent to the spinal column on fluoroscopy. This was highly unusual and I decided to perform a venogram. A 16 gauge angiocath was passed over the guidewire and the guidewire was removed leaving the angio catheter in place. I then injected 20 cc of Isovue into the vein and had a most unusual finding. There was a twist as seen when attempting to pass the guidewire her. The blood then flowed readily into a large vein paralleling the spine but to the left of the middle fine. It appeared to disperse through the lung and abdomen. After discussion with radiologist IA performed a 2nd injection using another 20 cc of contrast and backed my catheter out in the neck making sure that there was not a bifurcation in the internal jugular and I was preferentially cannulating the wrong part of that bifurcation. Indeed there was not. There was no evidence of cross of blood from the left IJ across the midline. I then had the anesthesiologist inject contrast into the PICC line in the right subclavian vein as it made the turn into the superior vena cava. Contrast flowed from right to left across the midline and entered this vein on the left. Based on prior CT imaging it appeared that the vein that was filling was the left ana azygous. 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 I was quite concerned about placing a catheter with TPN to be delivered into the left ana azygous vein and therefore I abandoned the procedure. I placed a suture in the small leila which was intentionally made in the skin. Dressings were applied the patient was taken extubated to the recovery room in good condition. Complications: none Condition: stable Disposition: PACU
[2018-11-18 13:18] VITALS: BP 111/64; PULSE 49; RESP 7; O2SAT 99
--- NOTE | 2018-11-18 13:26 | SUR.PHASEI ---
Pt irritable and expressing desire to leave. Requesting belongings and that she will sign papers to leave AMA. Dr. Santos spoke to patient. Pt transferred to OPD.
--- NOTE | 2018-11-18 13:49 | SUR.PHASEII ---
Pt taken to bathroom. Refused assistance. Pt irritable and insisting on leaving. Discharge instructions given to spouse. Pt insisted on signing instructions, discussed pt under anesthesia influence. Pt repeatedly stated she has signed instructions in the past. Pt to remove surgical dressings in [address] Santos. Pt and spouse notified. Pt provided with saline and she flushed the PICC herself. Pt left with black bag, ring, glasses and phone.
--- NOTE | 2019-02-17 18:50 | PM.PN.1 ---
Subjective Subjective Interval history: This patient's home nurse called me shantel saying the patient is in exquisite pain from her G tube site and can't wait until her appointment with Dr. Santos on 02/23. I asked her to come into the ER tonmaki, but she prefers to come into the office tomorrow. I asked her to call the office in the AM and see if either Dr. Bhatti or I could see her then. She denies fevers, but and says the tube flushes easily. However, a lot of tube feed seems to leak out, per the nurse. The patient feels the muscle is herniating around the tube and causing pain. Exam Vital Signs (past 8 hours): Oxygen Delivery Method Room Air
== END 2018-11-18 13:44 | disposition home or self-care (01) ==
PROVIDERS: PCP Internal Medicine; Visit Provider Specialist
PROC: (CPT 36561; principal; 2018-11-18 10:45)
DX: Z53.09 Procedure and treatment not carried out because of other contraindication (principal); G35 Multiple sclerosis; Z45.2 Encounter for adjustment and management of vascular access device; I82.210 Acute embolism and thrombosis of superior vena cava; Q27.8 Other specified congenital malformations of peripheral vascular system
CPT/HCPCS: 36561; 71045; 76000; J0690; J1644; J2250; J2704; J3010

== ENCOUNTER → 2018-12-09 16:37 | Outpatient (ROUT) | payer OTHER, SELFPAY ==
[2018-10-18 15:57] VITALS: BMI 40.3
[2018-12-09 16:47] LABS: Basophils Absolute Auto 100 /uL (0-100); Basophils Percent Auto 1.4 % (0-2); Eosinophils Absolute Auto 1400 /uL (0-450); Eosinophils Percent Auto 23.6 % (2-4); Hematocrit 36.2 % (36-46); Hemoglobin 12.2 g/dL (12.0-16.0); Lymphocytes Absolute Auto 1900 /uL (1100-4500); Lymphocytes Percent Auto 31.5 % (25-40); Mean Corpuscular HGB Conc 33.6 % (30-36); Mean Corpuscular Hemoglobin 27.3 PG (26-34); Mean Corpuscular Volume 81.4 fL (80-100); Monocytes Absolute Auto 500 /uL (0-900); Monocytes Percent Auto 7.4 % (3-14); Neutrophils Absolute Auto 2200 /uL (1500-7000); Neutrophils Percent Auto 36.1 % (50-75); Platelet Count 262 X10^3/uL (150-400); Red Blood Cell Count 4.45 X10^6/uL (4.0-5.2); Red Cell Distribution Width 15.4 % (11.6-14.8); White Blood Cell Count 6.1 X10^3/uL (4.5-11.0)
[2018-12-09 17:23] LABS: Alanine Aminotransferase 22 IU/L (9-52); Albumin 3.8 g/dL (3.5-5.0); Albumin Globulin Ratio 1.4 (1.0-2.8); Alkaline Phosphatase 85 U/L (38-126); Aspartate Aminotransferase 32 IU/L (14-36); BUN Creatinine Ratio 13.3 (6-22); Bilirubin Total 0.3 mg/dL (0.2-1.3); Blood Urea Nitrogen 8 mg/dL (7-17); Carbon Dioxide 33 mmol/L (22-32); Chloride 95 mmol/L (98-107); Estimated Glomerular Filt Rate > 60.0 mL/min (>60); Globulin 2.7 g/dL (1.7-4.1); Glucose 86 mg/dL (70-100); HEMOLYSIS 21 (0-50); Magnesium 1.9 mg/dL (1.6-2.3); Potassium 3.7 mmol/L (3.4-5.1); Sodium 135 mmol/L (137-145); Total Protein 6.5 g/dL (6.3-8.2); Triglycerides 140 mg/dL (35-150)
[2018-12-09 18:12] LABS: Add Manual Diff / Slide Review SLIDE REVIEW
[2018-12-09 18:14] LABS: Anisocytosis 1+
== END ==
PROVIDERS: PCP Internal Medicine; Visit Provider Internal Medicine
DX: G35 Multiple sclerosis (principal); R13.10 Dysphagia, unspecified
CPT/HCPCS: 80053; 83735; 84100; 84478; 85025

== ENCOUNTER → 2019-05-22 19:23 | Outpatient (ROUT) | payer OTHER, SELFPAY ==
[2019-02-18 09:43] VITALS: BMI 40.3
[2019-05-22 19:31] LABS: Add Manual Diff / Slide Review NO; Basophils Absolute Auto 100 /uL (0-100); Basophils Percent Auto 2.1 % (0-2); Eosinophils Absolute Auto 1200 /uL (0-450); Eosinophils Percent Auto 18.6 % (2-4); Hematocrit 36.8 % (36-46); Hemoglobin 12.2 g/dL (12.0-16.0); Lymphocytes Absolute Auto 1500 /uL (1100-4500); Lymphocytes Percent Auto 24.2 % (25-40); Mean Corpuscular HGB Conc 33.3 % (30-36); Mean Corpuscular Hemoglobin 25.9 PG (26-34); Mean Corpuscular Volume 77.8 fL (80-100); Monocytes Absolute Auto 500 /uL (0-900); Monocytes Percent Auto 7.6 % (3-14); Neutrophils Absolute Auto 3000 /uL (1500-7000); Neutrophils Percent Auto 47.5 % (50-75); Platelet Count 216 X10^3/uL (150-400); Red Blood Cell Count 4.73 X10^6/uL (4.0-5.2); Red Cell Distribution Width 18.5 % (11.6-14.8); White Blood Cell Count 6.2 X10^3/uL (4.5-11.0)
[2019-05-22 19:40] LABS: HEMOLYSIS < 15 (0-50); Iron 22 ug/dL (37-170)
[2019-05-22 19:41] LABS: Alanine Aminotransferase 16 IU/L (<35); Albumin 3.7 g/dL (3.5-5.0); Albumin Globulin Ratio 1.4 (1.0-2.8); Alkaline Phosphatase 81 U/L (38-126); Aspartate Aminotransferase 27 IU/L (14-36); BUN Creatinine Ratio 7.1 (6-22); Bilirubin Total 0.4 mg/dL (0.2-1.3); Blood Urea Nitrogen 5 mg/dL (7-17); Calcium 8.8 mg/dL (8.4-10.2); Carbon Dioxide 33 mmol/L (22-32); Chloride 95 mmol/L (98-107); Estimated Glomerular Filt Rate > 60.0 mL/min (>60); Globulin 2.7 g/dL (1.7-4.1); Glucose 100 mg/dL (70-100); HEMOLYSIS < 15 (0-50); Potassium 3.6 mmol/L (3.4-5.1); Sodium 135 mmol/L (137-145); Total Protein 6.4 g/dL (6.3-8.2)
[2019-05-22 19:50] LABS: Percent Iron Saturation 7 % (15-50); Total Iron Binding Capacity 335 ug/dL (265-497); Transferrin 277 mg/dL (206-381)
[2019-05-22 20:47] LABS: Folate 12.6 ng/mL (2.76-20.0); Vitamin B12 481 pg/mL (239-931)
== END ==
PROVIDERS: PCP Internal Medicine; Visit Provider Internal Medicine
DX: R13.10 Dysphagia, unspecified (principal); G35 Multiple sclerosis
CPT/HCPCS: 80053; 82607; 82746; 83540; 83550; 85025

== ENCOUNTER → 2019-06-27 17:11 | Outpatient (ROUT) | payer OTHER, SELFPAY ==
[2019-02-18 09:43] VITALS: BMI 40.3
[2019-06-27 17:30] LABS: HEMOLYSIS < 15 (0-50); Iron 42 ug/dL (37-170)
[2019-06-27 17:40] LABS: Percent Iron Saturation 13 % (15-50); Total Iron Binding Capacity 325 ug/dL (265-497); Transferrin 270 mg/dL (206-381)
[2019-06-27 18:07] LABS: Ferritin 77 ng/mL (11-264)
== END ==
PROVIDERS: PCP Internal Medicine; Visit Provider Internal Medicine
DX: R13.10 Dysphagia, unspecified (principal); G35 Multiple sclerosis
CPT/HCPCS: 82728; 83540; 83550

== ENCOUNTER → 2019-07-15 14:58 | Outpatient (ROUT) | payer OTHER, SELFPAY ==
[2019-02-18 09:43] VITALS: BMI 40.3
[2019-07-15 15:47] LABS: HEMOLYSIS < 15 (0-50); Iron 72 ug/dL (37-170)
[2019-07-15 15:58] LABS: Percent Iron Saturation 28 % (15-50); Total Iron Binding Capacity 260 ug/dL (265-497); Transferrin 218 mg/dL (206-381)
[2019-07-15 16:24] LABS: Ferritin 243 ng/mL (11-264)
== END ==
PROVIDERS: PCP Internal Medicine; Visit Provider Internal Medicine
DX: G35 Multiple sclerosis (principal); R13.10 Dysphagia, unspecified
CPT/HCPCS: 82728; 83540; 83550

== ENCOUNTER → 2019-11-12 17:23 | Outpatient (ROUT) | payer OTHER, SELFPAY ==
[2019-02-18 09:43] VITALS: BMI 40.3
[2019-11-12 17:45] LABS: Add Manual Diff / Slide Review NO; Basophils Absolute Auto 100 /uL (0-100); Basophils Percent Auto 1.5 % (0-2); Eosinophils Absolute Auto 400 /uL (0-450); Eosinophils Percent Auto 7.5 % (2-4); Hemoglobin 15.5 g/dL (12.0-16.0); Lymphocytes Absolute Auto 1100 /uL (1100-4500); Mean Corpuscular HGB Conc 34.5 % (30-36); Mean Corpuscular Hemoglobin 30.5 PG (26-34); Mean Corpuscular Volume 88.4 fL (80-100); Monocytes Absolute Auto 300 /uL (0-900); Monocytes Percent Auto 5.7 % (3-14); Neutrophils Absolute Auto 3600 /uL (1500-7000); Neutrophils Percent Auto 65.3 % (50-75); Platelet Count 166 X10^3/uL (150-400); Red Blood Cell Count 5.09 X10^6/uL (4.0-5.2); White Blood Cell Count 5.6 X10^3/uL (4.5-11.0)
[2019-11-12 17:52] LABS: HEMOLYSIS < 15 (0-50); Iron 82 ug/dL (37-170)
[2019-11-12 17:57] LABS: Alanine Aminotransferase 8 IU/L (<35); Albumin Globulin Ratio 1.7 (1.0-2.8); Alkaline Phosphatase 62 U/L (38-126); Aspartate Aminotransferase 24 IU/L (14-36); BUN Creatinine Ratio 7.5 (6-22); Bilirubin Total 0.7 mg/dL (0.2-1.3); Blood Urea Nitrogen 5 mg/dL (7-17); Calcium 9.3 mg/dL (8.4-10.2); Carbon Dioxide 31 mmol/L (22-32); Chloride 95 mmol/L (98-107); Estimated Glomerular Filt Rate > 60.0 mL/min (>60); Globulin 2.4 g/dL (1.7-4.1); Glucose 92 mg/dL (70-100); HEMOLYSIS < 15 (0-50); Potassium 3.7 mmol/L (3.4-5.1); Sodium 134 mmol/L (137-145); Total Protein 6.4 g/dL (6.3-8.2)
[2019-11-12 18:03] LABS: Percent Iron Saturation 32 % (15-50); Total Iron Binding Capacity 260 ug/dL (265-497); Transferrin 193 mg/dL (206-381)
[2019-11-12 18:32] LABS: Ferritin 51 ng/mL (11-264)
== END ==
PROVIDERS: PCP Internal Medicine; Visit Provider Internal Medicine
DX: R13.10 Dysphagia, unspecified (principal); G35 Multiple sclerosis
CPT/HCPCS: 80053; 82728; 83540; 83550; 85025

== ENCOUNTER → 2020-02-22 10:52 | Outpatient (CLI) | payer OTHER, SELFPAY ==
[2020-02-21 13:46] VITALS: BMI 40.3
--- NOTE | 2020-02-22 10:53 | DI.RAD.S_ITS ---
PROCEDURE: [place] CATHETER PATENCY COMPARISON: None. INDICATIONS: determine location and patency BOTH lumens FINDINGS: Dual lumen venous catheter to tip appears situated in the ana zygous venous system. Both lumens of the catheter are patent. There is a loop without luis kinking in the catheter at the level of the aortic arch. IMPRESSION: Dual lumen venous catheter positioned in the hemiazygous venous system is patent. Dictated by: Megan Mckenzie MD, PhD on 02/22/2020 at 15:20 Approved by: Megan Mckenzie MD, PhD on 02/22/2020 at 15:27
== END ==
PROVIDERS: PCP Internal Medicine; Referring Provider Specialist; Visit Provider Specialist
DX: T82.598A Other mechanical complication of other cardiac and vascular devices and implants, initial encounter (principal)
CPT/HCPCS: 76000

== ENCOUNTER 2020-12-28 12:06 | Day surgery (SDC) | payer OTHER, SELFPAY ==
[2020-12-24 15:26] VITALS: BMI 40.3
[2020-12-27 08:06] VITALS: BMI 19.0
[2020-12-28] VITALS (8 sets, daily range): BP systolic 105–148; BP diastolic 67–85; PULSE 58–91; RESP 13–22; TEMP 36.1–36.8; O2SAT 97–100; BMI 19.0
[2020-12-28] MEDS: LACTATED RINGERS 1,000 ML 100 ML IV (14:00)
[2020-12-28 14:06] LABS: COVID19 -Nasal RAPID Negative (Negative)
--- NOTE | 2020-12-28 15:03 | PM.PREOP ---
Pre-operative Note COVID-19 COVID-19 status: Negative Result date/Date tested (Pos, Neg/Pending): 12/28/20 Interval Note History & Physical reviewed/Exam performed by Physician: Yes Changes to H&P: No
[2020-12-28] MEDS: CEFAZOLIN 1 GM VIAL 2 GM IV (15:42)
--- NOTE | 2020-12-28 15:47 | SUR.OPER ---
Supine on padded OR bed, head on pillow, arms padded and tucked at sides, legs uncrossed, safety belt at thigh, tape over blanket over lower legs .
[2020-12-28] MEDS: LIDOCAINE 1% 30 ML INJ (15:58)
[2020-12-28] MEDS: IOPAMIDOL 15 ML VIAL INJ (15:59)
[2020-12-28] MEDS: LIDOCAINE 1% W/EPI 20 ML INJ (16:02)
[2020-12-28] MEDS: HEPARIN 5,000 UNIT/ML VIAL 5000 UNIT IV (16:04)
[2020-12-28] MEDS: BACITRACIN OINT 0.9 GM PCKT 1 APPLIC TOP (16:57)
--- NOTE | 2020-12-28 17:15 | P.OP_ITS ---
Operative Date/Time/Diagnoses Date of procedure: 12/28/20 Time of procedure: 17:15 Pre-op diagnosis: Leaking Groshong catheter which could not be repaired Post-op diagnosis: same Procedure & Clinicians Procedure: Removal of existing Groshong tunneled catheter and replacement with a new 9 Upper Sorbian dual lumen Groshong in the left internal jugular vein. Venogram. Same procedure as scheduled: Yes Indications: Patient has a dual lumen Groshong. One lumen flushes very poorly in the 2nd lumen flushes and leaks fluid under the skin. It cannot be repaired and therefore she is brought in to remove the existing Groshong and place a new 1. The patient has very limited access due to occlusion of her superior vena cava just at the level of the innominate vein and alternate passage of blood flow from the upper body back to the heart. Surgeon: Naresh Santos Click Yes if Unassisted: Yes Anesthesia Type: General Operative Notes Findings: Superior vena cava remains occluded. Catheter tip is located were I might expect the innominate and the superior vena cava to coalesce. Closure Type: primary Specimen(s): none sent Prosthetic devices, grafts, tissues, transplants, or devices: 9.5 Upper Sorbian dual lumen Groshong inserted. Estimated Blood Loss (mL): 30 Blood products transfused: none Procedure in detail: The patient was placed supine on the operating room table and underwent general endotracheal anesthesia. She had to be paralyzed for this procedure because of the constant muscle spasms of all 4 extremities and her torso that occur. Once paralyzed an IV was placed in her right hand. I examined her left neck preoperatively to confirm that the left internal jugular was patent and it appeared to be. She was prepped and draped to expose her left neck to the jaw and chest down to her nipple and lateral to her anterior axillary line. I began by making a small incision at the insertion site skin of the existing catheter. I dissected the Danyel cuff from the surrounding soft tissues. Using fluoroscopy I looked to see where the existing catheter was located and pulled it under fluoroscopy making sure all of it was removed. I re-prepped this area with chlorhexidine and alcohol avoiding the actual incision area and applied a Tegaderm to keep this area out of my operative field. I estimated the length of catheter I would need from the neck into the chest and out the lateral chest wall and marked to this area. This was located at a spot where the Danyel cuff of the new catheter would be under the skin. I made a small incision in the neck and using guidance from the ultrasound inserted the needle into the internal jugular vein without difficulty. There was free blood return. A guidewire was passed and the needle removed. Using fluoroscopy I repeatedly tried to manipulate the catheter into the vein with the prior catheter had been located but I simply could not do so. After spending about 15 minutes trying to do this and having success only in it flipping into the left subclavian vein or into the midline and crossing into what appeared to be the right subclavian vein I a abandoned this technique. I decided that it would probably be adequate to place it into the in non min as the blood return even though the superior vena cava appeared to be occluded would be the same even if I had placed it into the alternative vein. I made a small size neck on the skin of the chest wall and passed the tunneled lisa between this neck and the incision in the neck. I attached the catheter to the tunneling lisa and pulled the catheter down through so that the Danyel cuff was just under the skin near the chest wall incision. It was not visible. The dilator and introducer were passed over the guidewire very carefully monitoring with fluoroscopy to make sure when I reached the turn across the midline of the vascular structure I had the guidewire in, that I did not push it through the wall of the vessel. I removed the guidewire and dilator and left the introducer in place. I then passed the catheter through the introducer peeled it away and the tip appeared to be in fairly good position right near where the vessels cross the midline to turn into the SVC which was apparently still occluded. I was able to aspirate 1 port without difficulty and injected heparinized saline into it. The other port I could not aspirate well so I backed the catheter out just a little bit and then was able to aspirate and flush both sides of the dual lumen catheter with heparin without difficulty. To confirm my location and my suspicions I injected dye into both lumens to make sure they were patent and that blood flow freely went from the catheter tip into other veins. With injection of both sides of the dual lumen Groshong the dye injected into that vessel and cross to the left into alternative veins of the left chest to return to the heart. The dye did not egress back up the channel that the Groshong catheter was sitting in from the neck down to the midline position. I once again aspirated the catheters and got good blood return from both. I then placed the appropriate caps so that the catheters could be used and Flushed the 2 sides of the double-lumen Groshong wi th heparinized saline. The wound that the neck was closed with interrupted 4-0 Vicryl subcuticular stitches and Steri-Strips. The wound where the prior gross strong had exited onto the chest wall had antibiotic ointment applied to it and a bandage. The Groshong was secured to the chest wall with the enclosed device and sutured with 3-0 nylon to prevent it from backing out or being pulled out. Dressing was applied to all 3 sites and the patient was awakened extubated and taken the recovery area in good condition. Postprocedure x-ray showed no evidence of pneumothorax and the catheter tip l ocated exactly where it had been during the procedure. Complications: none Post-operative Condition: stable Disposition: PACU Plan for aftercare: I spoke with both the patient when she was awake and the patient's about the postoperative management. I would like to see them in 2 or 3 weeks in the office to remove stitches and make sure everything looks okay. They should call for any problems whatsoever. They are well aware of how these work and they have a home health nurse coming tomorrow or the next day who can do appropriate dressing care.
[2020-12-28] MEDS: fentaNYL 100 MCG/2 ML INJ IV ×2 (17:21→17:28)
--- NOTE | 2020-12-28 17:30 | DI.RAD.S_ITS ---
PROCEDURE: XR CHEST 1V INDICATIONS: GROSHONG PLACEMENT TECHNIQUE: One view of the chest was acquired. COMPARISON: [facility], [place], [place] CATHETER PATENCY, 02/22/2020, 11:05. [facility], [place], XR CHEST 1V, 11/18/2018, 13:31. FINDINGS: Surgical changes and devices: Left-sided central venous catheter is in place with the distal tip apparently projecting in a branch vessel, likely the azygos. The distal segment of the catheter projects to the right side of the thoracic spine. Lungs and pleura: Lungs are clear. No pleural effusions or pneumothorax. Mediastinum: Mediastinal contours appear normal. Heart size is normal. Bones and chest wall: No suspicious bony lesions. Overlying soft tissues appear unremarkable. IMPRESSION: Left-sided central venous catheter with the distal tip apparently projecting within a branch vessel near the superior vena cava. It is suspected be within azygos vein. Findings were discussed with telephonically at 2114 hrs. He is aware of the catheter positioning which is related to history of known occluded SVC and resultant collateral vessels. Dictated by: Lico Ramos M.D. on 12/28/2020 at 21:01 Approved by: Lico Ramos M.D. on 12/28/2020 at 21:25
[2020-12-28] MEDS: LORazepam 2 MG/ML INJ 0.5 MG IV (17:34)
== END 2020-12-28 18:07 | disposition home or self-care (01) ==
PROVIDERS: PCP Internal Medicine; Referring Provider Specialist; Visit Provider Specialist
PROC: (CPT 36558; principal; 2020-12-28 14:00)
DX: G12.21 Amyotrophic lateral sclerosis (principal); T82.898A Other specified complication of vascular prosthetic devices, implants and grafts, initial encounter; I82.210 Acute embolism and thrombosis of superior vena cava; K21.9 Gastro-esophageal reflux disease without esophagitis; Z20.822 Contact with and (suspected) exposure to COVID-19
CPT/HCPCS: 36558; 36589; 71045; 76000; 87635; J0690; J1644; J2060; J2250; J2405; J2704; J3010

== ENCOUNTER 2021-01-11 14:34 | Day surgery (SDC) | payer OTHER, SELFPAY ==
[2020-12-24 15:26] VITALS: BMI 40.3
[2021-01-11] VITALS (9 sets, daily range): BP systolic 102–135; BP diastolic 42–78; PULSE 64–81; RESP 10–16; TEMP 36.3–36.9; O2SAT 95–100; BMI 15.6
--- NOTE | 2021-01-11 | DI.RAD.S_ITS ---
PROCEDURE: FL FLUOROSCOPY >1HR COMPARISON: [facility], , [place] CATHETER PATENCY, 02/22/2020, 11:05. INDICATIONS: GROSHONG PLACEMENT FINDINGS: A right internal jugular catheter is present which extends to the left of midline. Injection of contrast material intraoperatively demonstrates filling of the ana azygous system, as seen on prior fluoro study from 02/22/2020. A left internal jugular catheter is also present. IMPRESSION: Intraoperative images demonstrate placement of a right internal jugular catheter with tip in the hemiazygous system in this patient with prior superior vena cava occlusion. Dictated by: Clifford Velázquez M.D. on 01/11/2021 at 20:26 Approved by: Clifford Velázquez M.D. on 01/11/2021 at 20:34
--- NOTE | 2021-01-11 | DI.RAD.S_ITS ---
PROCEDURE: XR CHEST 1V INDICATIONS: POST-OP GROSHONG PLACEMENT TECHNIQUE: One view of the chest was acquired. COMPARISON: None. FINDINGS: Surgical changes and devices: A catheter is seen projecting over the right neck and chest. Catheter tip projects over the left upper chest. If this is located intravenously, and may be within the left innominate vein. Recommend repositioning. Lungs and pleura: Lungs are clear. No pleural effusions or pneumothorax. Mediastinum: Mediastinal contours appear normal. Heart size is normal. Bones and chest wall: No suspicious bony lesions. Overlying soft tissues appear unremarkable. IMPRESSION: A catheter is seen projecting over the right neck and chest. Catheter tip projects over the left upper chest. If this is located intravenously, and may be within the left innominate vein. Recommend repositioning. Findings were discussed with the Dr. Mendoza by telephone on 01/11/2021 at 6:52 PM. Dictated by: Clifford Velázquez M.D. on 01/11/2021 at 18:46 Approved by: Clifford Velázquez M.D. on 01/11/2021 at 18:52
[2021-01-11 15:03] LABS: COVID19 -Nasal RAPID Negative (Negative)
--- NOTE | 2021-01-11 16:59 | PM.PREOP ---
Pre-operative Note COVID-19 COVID-19 status: Negative Result date/Date tested (Pos, Neg/Pending): 01/11/21 Interval Note History & Physical reviewed/Exam performed by Physician: Yes Changes to H&P: No
[2021-01-11] MEDS: LACTATED RINGERS 1,000 ML 42 ML IV ×3 (17:15→19:22)
[2021-01-11] MEDS: CEFAZOLIN 1 GM VIAL 2 GM IV (17:22)
--- NOTE | 2021-01-11 17:40 | SUR.OPER ---
Supine on padded OR bed, head on pillow, arms secured on padded arm boards at <90 degrees abduction, legs uncrossed, safety belt at thigh, tape over blanket over lower legs.
[2021-01-11] MEDS: LIDOCAINE 1% 30 ML INJ (17:50)
[2021-01-11] MEDS: HEPARIN 5,000 UNIT, SODIUM CHLORIDE 0.9% 50 ML IV (17:51)
[2021-01-11] MEDS: IOPAMIDOL 15 ML VIAL INJ (17:52)
[2021-01-11] MEDS: BACITRACIN OINT 0.9 GM PCKT 1 APPLIC TOP (18:29)
--- NOTE | 2021-01-11 18:40 | SUR.PHASEI ---
CXR order received from Dr Santos
--- NOTE | 2021-01-11 18:58 | SUR.PHASEI ---
Received to PACU after general anesthesia. Oral airway in place. No further airway assistance required. Report from Quoc RN and Dr Valle. 184 - Oral airway removed without difficulty. 185 - Pt c/o back pain due to laying flat for OR. Pt states this is normal for her. Medicated by Dr Valle. Back rub offered. Pt declined. States she will put lido 5% patches on when she gets home.
[2021-01-11] MEDS: fentaNYL 100 MCG/2 ML INJ IV ×2 (19:05→19:10)
--- NOTE | 2021-01-11 19:27 | PM.OP.1 ---
Operative Date/Time/Diagnoses Date of procedure: 01/11/21 Time of procedure: 18:35 Pre-op diagnosis: Leak in recently placed Groshong catheter. Repair kit not available from company or in the entire region. Only available kits are . Patient was brought for replacement. Post-op diagnosis: same Procedure & Clinicians Procedure: Placement of new Groshong catheter in the right internal jugular vein. Venogram. Removal of catheter from the left neck. Same procedure as scheduled: Yes Indications: See preop diagnosis Surgeon: Naresh Santos Click Yes if Unassisted: Yes Anesthesia Type: General Operative Notes Findings: Tip placed in an unusual location due to the patient having thrombosed her superior vena cava and access below the chest is not available. Venogram shows the already known apparent blood return from the upper extremity with the catheter in place. Closure Type: primary Specimen(s): none sent Prosthetic devices, grafts, tissues, transplants, or devices: 9.5 Sinhala dual lumen Groshong catheter. Estimated Blood Loss (mL): 7 Procedure in detail: Patient was placed supine on the operating room table and given mask anesthesia. An IV was then able to be placed in her right hand as her limb spasms subsided. Using an ultrasound device, the internal jugular vein was identified and found to be patent and compressible. The patient was then Prepped and draped in the usual fashion. The prior placed Groshong was initially prepped into the field but then it was covered with a Tegaderm to exclude it from the operative field. A small incision was made transversely in the neck overlying the area of the internal jugular near the junction of the sternal and clavicular heads of the sternocleidomastoid muscle. Using the ultrasound a needle was ultimately inserted into the internal jugular vein. Guidewire was passed and the needle removed. Using fluoroscopy the guidewire was noted to go into the right subclavian vein. It was easily manipulated to be placed adjacent to the tip of the prior Groshong catheter in the left IJ which was still in place. The length of catheter needed was estimated and a an incision made on the skin of the chest in such a way that the Danyel cuff would be just under the skin opening. A Tunneler was passed between the chest incision and the neck incision and the catheter secured to it. The tunneler and catheter Was pulled back through the chest opening and the catheter placed so that the Danyel was just under the skin in near the opening in the skin of the chest wall incision. The Dilator and introducer were passed using fluoroscopy over the guidewire so that it was not pushed through any occluded structures. The dilator was removed and the catheter passed through the introducer which was peeled away while observing under fluoroscopy. The tip ended up at the same location as the prior catheter. The Groshong was aspirated and flushed with heparinized saline. It aspirated and flushed easily. I then performed a venogram through the Groshong catheter and it noted the already known alternate blood return from the upper body into the heart. The catheter was then again flushed with heparin. The catheter appeared to be in adequate position. The occlusion of the superior vena cava was once more confirmed. The Groshong was secured to the chest wall. The neck incision was closed with interrupted 4-0 Vicryl and Steri-Strips. Dressings were applied. With this portion of the operation completed I then re-exposed the prior Groshong site. I was able to pull it with a little resistance from the Danyel cuff which had begun to grow into the skin of the patient. Once the release the catheter easily slid out and I applied antibiotic ointment and a dressing to the opening. The procedure was completed. Dressings were applied in such a way as to prevent direct pulling on the catheter. Patient appeared to tolerate the procedure well and was awakened extubated and taken the recovery area. Complications: none Post-operative Condition: stable Disposition: PACU
== END 2021-01-11 19:54 | disposition home or self-care (01) ==
PROVIDERS: PCP Internal Medicine; Referring Provider Specialist; Visit Provider Specialist
PROC: (CPT 36581; principal; 2021-01-11 17:00)
DX: T82.534A Leakage of infusion catheter, initial encounter (principal); I82.210 Acute embolism and thrombosis of superior vena cava; G12.21 Amyotrophic lateral sclerosis; Z20.822 Contact with and (suspected) exposure to COVID-19; F41.9 Anxiety disorder, unspecified; F32.9 Major depressive disorder, single episode, unspecified; K21.9 Gastro-esophageal reflux disease without esophagitis; F17.200 Nicotine dependence, unspecified, uncomplicated
CPT/HCPCS: 36581; 36556; 71045; 76000; 87635; J0690; J1100; J1644; J2250; J2405; J3010

== ENCOUNTER → 2021-12-01 10:44 | Outpatient (CLI) | payer OTHER, SELFPAY ==
[2021-01-11 16:26] VITALS: BMI 40.3
--- NOTE | 2021-12-01 | DI.RAD.S_ITS ---
PROCEDURE: XR HIP W PEL IF DONE RT 2V INDICATIONS: FELL ON HIP TECHNIQUE: Frontal view of the pelvis along with frogleg lateral view of the right hip was performed. COMPARISON: None. FINDINGS: Bones: No fractures or dislocations. No suspicious bony lesions. The visualized pelvic ring appears intact. Minimal degenerative spurring. Joint spacing is maintained. Soft tissues: No suspicious soft tissue calcifications or masses. Surgical clip noted in the right lower quadrant. Pelvic phlebolith. IMPRESSION: Minimal degenerative spurring. No acute osseous abnormality. Dictated by: Samy Julien D.O. on 12/01/2021 at 12:37 Approved by: Samy Julien D.O. on 12/01/2021 at 12:38
== END ==
PROVIDERS: PCP Internal Medicine; Referring Provider Internal Medicine; Visit Provider Internal Medicine
DX: M25.551 Pain in right hip (principal)
CPT/HCPCS: 73502

== ENCOUNTER 2022-06-24 07:45 | Day surgery (SDC) | payer OTHER, SELFPAY ==
[2021-01-11 16:26] VITALS: BMI 40.3
[2022-06-24] VITALS (13 sets, daily range): BP systolic 96–141; BP diastolic 62–85; PULSE 68–111; RESP 10–16; TEMP 36–36.7; O2SAT 95–100; BMI 19.6
--- NOTE | 2022-06-24 | DI.RAD.S_ITS ---
PROCEDURE: XR CHEST 1V INDICATIONS: Surgery TECHNIQUE: Intraoperative fluoroscopic views of the chest was acquired. COMPARISON: [facility], , XR CHEST 1V, 01/11/2021, 18:38. FINDINGS: Intraoperative fluoroscopic images of upper chest shows guidewires projecting in the region of upper SVC suggest clinical correlation. IMPRESSION: Fluoro guidance was provided intraoperatively for surgical procedure in right upper chest. Dictated by: Marcus Knight M.D. on 06/24/2022 at 14:35 Approved by: Marcus Knight M.D. on 06/24/2022 at 14:39
--- NOTE | 2022-06-24 | DI.RAD.S_ITS ---
PROCEDURE: XR CHEST 1V INDICATIONS: POST OP LINE PLACEMENT TECHNIQUE: One view of the chest was acquired. COMPARISON: [facility], PREM, XR CHEST 1V, 06/24/2022, 11:17. [facility], CR, XR CHEST 1V, 01/11/2021, 18:38. FINDINGS: Surgical changes and devices: No central line appreciated. Lungs and pleura: Lungs are clear. No pleural effusions or pneumothorax. Mediastinum: Mediastinal contours appear normal. Heart size is normal. Bones and chest wall: No suspicious bony lesions. Overlying soft tissues appear unremarkable. IMPRESSION: No central line appreciated. Dictated by: Franko Mane M.D. on 06/24/2022 at 13:06 Approved by: Franko Mane M.D. on 06/24/2022 at 13:08
[2022-06-24] MEDS: LORazepam 2 MG/ML INJ IV (08:53)
[2022-06-24] MEDS: LACTATED RINGERS 1,000 ML 42 ML IV ×2 (08:55→11:58)
--- NOTE | 2022-06-24 08:55 | PM.HP.1 ---
History of Present Illness History of Present Illness Date Patient Seen: 06/24/22 Time Patient Seen: 08:55 Chief complaint: Left Groshong Catheter Placement Narrative: Ambreen is here for her new Groshong catheter. See office note from April for details. The venogram was never completed due to problems with insurance authorizations. Patient History Medical History Anxiety Aspiration into airway Chronic fatigue Depression Difficulty swallowing Easy bruisability Eczema Frequent UTI GERD (gastroesophageal reflux disease) History of muscle spasm Hospice care Multiple sclerosis (~2003) Onychomycosis Pain Pancreatitis Pneumonia Presence of device (11/18/18) Problem with intravenous catheter Syncope Wheelchair bound Surgical History (Updated 06/18/22 @ 15:03 by Yelena Sánchez RN) H/O: hysterectomy (~2001) History of 2 sections History of removal of ovarian cyst (~03/1982) History of surgery (01/11/21) Hx of cholecystectomy (~2008) Status post insertion of percutaneous endoscopic gastrostomy (PEG) tube Family & Social History Social History: household members spouse Tobacco & Substance use: Tobacco type cigarettes Smoking Status Current every day smoker Smoking packs per day 0.5 alcohol intake never Substance Use Type marijuana Meds Home Medications and Allergies Home Medications Medication Instructions Recorded Confirmed Type albuterol sulfate 90 mcg/actuation 1 puff INH Q4HP ##0 09/29/12 06/24/22 History aerosol inhaler (Ventolin HFA) hydrochlorothiazide 25 mg tablet 25 mg PO QDAY #0 tabs 02/05/16 06/24/22 History lorazepam 2 mg/mL oral concentrate 1 ml PO Q2HR ##0 02/05/16 06/24/22 History (Lorazepam Intensol) baclofen 20 mg tablet 20 mg PO Q6H ##0 10/06/18 06/24/22 History oxybutynin chloride 10 mg 1 tab PO DAILY 10/06/18 06/24/22 History tablet,extended release 24 hr clonazepam 2 mg tablet 3 mg PO TID ##0 11/16/18 06/24/22 History estradiol 0.1 mg/24 hr weekly 1 patch transdermal QWEEK 11/16/18 06/24/22 History transdermal patch ondansetron 4 mg disintegrating 4 mg translingual BID PRN Nausea 12/28/20 06/24/22 History tablet pantoprazole 40 mg intravenous 40 mg IV BID 01/11/21 06/24/22 History solution (Protonix) fentanyl 100 mcg/hr transdermal 500 mcg transdermal Q72H #0 ea 05/21/22 06/24/22 History patch naloxone 2 mg/actuation nasal spray 2 mg intranasal PRN PRN over dose 05/21/22 06/24/22 History polyethylene glycol 3350 17 17 g PO DAILY PRN Constipation 05/21/22 06/24/22 History gram/dose oral powder (Miralax) famotidine 10 mg/mL intravenous 40 mg IV BID 06/24/22 06/24/22 History solution morphine concentrate 20 mg/mL oral 20 mg PO Q4H PRN Pain (Scale Score 06/24/22 06/24/22 History syringe (FOR ORAL USE ONLY) 1-3) Allergies Allergy/AdvReac Type Severity Reaction Status Date / Time alteplase [ALTEPLASE] Allergy Severe severe Verified 06/24/22 08:17 cardiac and resp. problems legumes [LEGUMES] Allergy Severe ANAPHYLAXIS Verified 06/24/22 08:17 peanut Allergy Severe Anaphylaxis Verified 06/24/22 08:17 Sulfa (Sulfonamide Allergy Severe SOB/HIVES Verified 06/24/22 08:17 Antibiotics) [SULFA (SULFONAMIDE ANTIBIOTICS)] latex [LATEX] Allergy Mild LONG-TERM Verified 06/24/22 08:17 USE-RASH heparin [HEPARIN] AdvReac Intermediate HEART Verified 06/24/22 08:17 RACE, 'BUTTERFLIES IN MY CHEST' Exam Vital Signs (past 8 hours): - 06/24/22 08:47 Temperature 98.1 F Pulse Rate 111 H Blood Pressure 137/85 Pulse Oximetry 98 Oxygen Delivery Method Room Air Oxygen Delivery Method Room Air Const General: No in distress Resp Effort & Inspection: normal respiratory effort Assessment & Plan Assessment and plan (1) Malfunction of peripheral inserted central catheter: Qualifiers: Encounter type: initial encounter Qualified Code(s): T82.598A - Other mechanical complication of other cardiac and vascular devices and implants, initial encounter Status: Acute Plan Plan is to proceed with a left subclavian double-lumen Groshong catheter and remove the old right IJ catheter. Currently the right IJ catheter certainly venous access. If can not advance catheter through the brachiocephalic vein will have to prep the right side and attempt right subclavian access. She understands the risks of the procedure and wishes to proceed. Time Spent With Patient Critical Care time: I spent a total of [] minutes of critical care time on this patient's care today; this time is exclusive of procedural time.
[2022-06-24] MEDS: CEFAZOLIN 2 GM/100 ML PREMIX 100 ML IV (09:15)
--- NOTE | 2022-06-24 09:56 | SUR.OPER ---
Supine on padded OR bed, head on pillow, arms padded and tucked at sides, legs uncrossed, safety belt at thigh, tape over blanket over lower legs .
[2022-06-24] MEDS: BUPIVACAINE 0.25% (PF) VIAL 30 ML INJ (10:30)
[2022-06-24] MEDS: IOPAMIDOL 30 ML VIAL INJ (10:32)
--- NOTE | 2022-06-24 11:34 | P.OP_ITS ---
Operative Date/Time/Diagnoses Date of procedure: 06/24/22 Time of procedure: 11:34 Pre-op diagnosis: Amyotrophic lateral sclerosis Post-op diagnosis: same Procedure & Clinicians Procedure: Groshong catheter removal, attempted Groshong catheter placement, angiography of the left brachiocephalic vein and power PICC placement in the right basilic vein Same procedure as scheduled: No Surgeon: Parviz Souza Operative Notes Procedure in detail: The patient was brought to the operating room and placed on the table in the supine position. General anesthesia was induced. Arms were tucked at her side. First, the left upper chest was prepped and draped in the usual fashion and a time-out was performed. Local was injected inferior to the clavicle and the left subclavian vein was accessed via the Seldinger technique. The wire was advanced under fluoroscopy but encountered resistance in the brachiocephalic vein. Roughly 10 mL of 50% contrast were injected which showed that the brachiocephalic vein was not patent. There were diffuse collaterals. Next we removed the existing right internal jugular vein Groshong catheter which was not functional and held pressure over the left lower neck. Once hemostasis was observed we catheterized the right subclavian vein with the Seldinger lakisha hnique but again there was inability to pass the wire beyond the innominate vein. We then accessed the right internal jugular vein under ultrasound guidance but again the wire could not be passed into the innominate vein and it appeared that there was thrombus occupying the proximal right jugular vein from the location of the prior venipuncture site towards the innominate vein. At this point we aborted the attempted Groshong catheter placement and cold Radiology to place a right basilic power PICC. This was successfully performed by Lala STUBBS. The new PICC line was flushed with 4 mL of heparinized saline. EBL: 30 mL Post-operative Condition: stable Disposition: PACU
--- NOTE | 2022-06-24 12:26 | SUR.PHASEI ---
pt sleeping quite a bit because of the amount of versed given to her by anesthesia..
[2022-06-24] MEDS: fentaNYL 100 MCG/2 ML INJ IV ×2 (12:38→12:43)
--- NOTE | 2022-06-24 12:49 | SUR.PHASEI ---
Pt very upset that her groshong catheter was removed. Dr. Souza in to see pt and talk to her. He told pt he would see her after her surgery next weejk to discuss chcf options.
--- NOTE | 2022-06-24 12:56 | SUR.PHASEI ---
pt is very very angry about her catheter being removed. Pt keeps saying the same thing over and over about her catheter being removed. Tried to explain to pt about the catheter and the PICC line being placed. Pt was told she had to stay 30 minutes after last dose of fentanyl. Pt keeps talking about the line.. Dr. Souza talked to pt. about her line but he had to go back in to surgery. Talked to pt about her line and the use of her picc line.
--- NOTE | 2022-06-24 13:35 | SUR.PHASEII ---
DC home with and own motorized WC. Extension tubes given and NS flush for new PICC line. All questions answered.
--- NOTE | 2022-06-24 13:52 | SUR.PHASEII ---
Left message at Dr Souza's office to schedule post op appointment. Appointment made after patient discharge for Saturday June 25, 2022 at 1330. Called Ed, patient's , to relay message. Voicemail left. Instructed to call back with confirmation that he received the message.
== END 2022-06-24 13:34 | disposition home or self-care (01) ==
PROVIDERS: PCP Internal Medicine; Referring Provider Surgery; Visit Provider Surgery
PROC: (CPT 36589; principal; 2022-06-24 09:15)
DX: G12.21 Amyotrophic lateral sclerosis (principal); T82.598A Other mechanical complication of other cardiac and vascular devices and implants, initial encounter
CPT/HCPCS: 36589; 36573; 71045; 76000; J0690; J1100; J1644; J2060; J2250; J2405; J3010; J3490; Q9967

== ENCOUNTER 2022-07-01 12:59 | Day surgery (SDC) | payer OTHER, SELFPAY ==
[2022-06-24 13:51] VITALS: BMI 40.3
--- NOTE | 2022-07-01 | DI.RAD.S_ITS ---
PROCEDURE: XR ABDOMEN MIN 2V INDICATIONS: GROSHONG CATHERTER PLACEMENT TECHNIQUE: 2 views of the abdomen were acquired. COMPARISON: None. FINDINGS: Vascular catheter projects over the expected area of the left femoral vein, extending superiorly to the level of the left common iliac vein and inferior IVC. IMPRESSION: Vascular catheter terminating in either the upper portion of the left common iliac vein or inferior IVC. Dictated by: Nikunj Coleman M.D. on 07/02/2022 at 11:29 Approved by: Nikunj Coleman M.D. on 07/02/2022 at 11:30
[2022-07-01 13:54] VITALS: BP 133/69; PULSE 88; TEMP 36.9; O2SAT 98
[2022-07-01] MEDS: LORazepam 2 MG/ML INJ 1 MG IV ×2 (15:59→16:04)
--- NOTE | 2022-07-01 16:02 | PM.PREOP ---
Pre-operative Note COVID-19 COVID-19 status: Not tested Interval Note History & Physical reviewed/Exam performed by Physician: Yes Changes to H&P: No ASA Class (for procedural sedation): IV
[2022-07-01] MEDS: CEFAZOLIN 2 GM/100 ML PREMIX 100 ML IV (16:23)
--- NOTE | 2022-07-01 16:38 | SUR.OPER ---
Supine on padded OR bed, head on pillow, arms secured on padded arm boards at <90 degrees abduction, legs uncrossed, safety belt at abdomen, tape over blanket over lower legs. pt positioned per direction and supervision of Dr Souza.
[2022-07-01] MEDS: BUPIVACAINE 0.25% (PF) VIAL 30 ML INJ (16:54)
[2022-07-01] MEDS: LIDOCAINE 1% W/EPI 20 ML INJ (16:54)
--- NOTE | 2022-07-01 17:37 | PM.OP.1 ---
Operative Date/Time/Diagnoses Date of procedure: 07/01/22 Time of procedure: 17:38 Pre-op diagnosis: Amyotrophic lateral sclerosis Post-op diagnosis: same Procedure & Clinicians Procedure: Left femoral 9.5 [place] double-lumen Groshong catheter Same procedure as scheduled: Yes Surgeon: Parviz Souza Anesthesia Type: General Operative Notes Procedure in detail: The patient was brought into the operating room and placed on the table in the supine position. Ancef was administered. General anesthesia was induced via LMA. Bilateral inguinal regions and thighs were prepped and draped in the usual manner. A time-out was performed. We started with the right femoral vein. The vein was well seen on ultrasound and appeared to be patent however blood would not return to the syringe despite multiple attempts to cannulate. We then moved to the left femoral vein which was accessed via the Seldinger technique. C-arm was used to confirm that the wire appeared to be in the iliac vein. Next, the dilator and peel-away sheath were inserted over the wire without resistance. The wire was removed. The Groshong catheter was primed with saline and dilator was removed and the Groshong catheter was introduced into the iliac vein using the peel-away sheath. We then marked the skin where the cuff would lie on the left thigh and created a new 5 mm incision. Catheter was trimmed and attached to the tunneler and brought out through the lower exit site such that the cuff was just beyond the skin opening. The 2 lumens were connected according to the clerk television production's instructions. Saline was flushed through both lumens without resistance. 3 mL of heparinized saline were injected into each lumen and each lumen was then capped. The vena puncture incision was closed using interrupted dermal 3-0 Vicryl sutures and Monocryl. Steri-Strips were applied over the vena puncture sites on both groins. EBL: 10 mL Post-operative Condition: stable Disposition: PACU
[2022-07-01 17:40] VITALS: BP 141/80; PULSE 75; RESP 18; TEMP 36.3; O2SAT 97
[2022-07-01 17:47] VITALS: BP 129/80; PULSE 75; RESP 12; TEMP 36.3; O2SAT 97
[2022-07-01 17:50] VITALS: BP 122/83; PULSE 74; RESP 12; O2SAT 98
[2022-07-01] MEDS: fentaNYL 100 MCG/2 ML INJ IV (18:05)
[2022-07-01 18:35] VITALS: BP 124/74; PULSE 74; RESP 18; TEMP 36.4; O2SAT 99
== END 2022-07-01 18:48 | disposition home or self-care (01) ==
PROVIDERS: PCP Internal Medicine; Referring Provider Surgery; Visit Provider Surgery
PROC: (CPT 36558; principal; 2022-07-01 14:45)
DX: G12.21 Amyotrophic lateral sclerosis (principal); T82.848A Pain due to vascular prosthetic devices, implants and grafts, initial encounter; I87.2 Venous insufficiency (chronic) (peripheral)
CPT/HCPCS: 36558; 74019; 76000; J0690; J1100; J1644; J2060; J2405; J2704; J3010; J3490

== ENCOUNTER → 2022-07-09 09:28 | Outpatient (CLI) | payer OTHER, SELFPAY ==
[2022-06-24 13:51] VITALS: BMI 40.3
--- NOTE | 2022-07-09 10:23 | DI.CT.S_ITS ---
PROCEDURE: CT ANGIO CHEST INDICATIONS: Other mechanical complication of other cardiac and vascular. Patient with a LS, needs fluids and nutrition. Multiple previous central venous catheters. Referring clinician feels subclavian may be occluded. Purpose of the study is to perform a right chest venogram TECHNIQUE: After the administration of intravenous contrast, 2.5 mm thick sections acquired from the lung apices to the posterior lung bases. Maximum intensity projection (MIP) oblique sagittal reformats were then acquired parallel to the aortic arch. For radiation dose reduction, the following was used: automated exposure control. COMPARISON: None. FINDINGS: Image quality: Excellent. Venous structures: The right arm has been injected. There are extensive varicosities involving the right upper arm and right chest and right breast. The right subclavian vein may be occluded in its entirety. The major venous structure extending to the chest from the arm appears to be the cephalic vein. The right brachiocephalic vein is occluded. The superior vena cava is never visualized, and is either diminutive or occluded. The left brachiocephalic vein appears to be small. It is not opacified. It may potentially also be occluded. Mediastinum: Heart size is normal. No pericardial effusion. No mediastinal or hilar adenopathy by size criteria. Central pulmonary arteries are normal in size. Esophagus is normal in caliber. No hiatal hernia. Lungs and pleura: Mild centrilobular emphysema. No acute airspace opacities. No pleural effusions or pneumothorax. Central and peripheral airways are patent and normal in caliber. Bones and chest wall: No axillary adenopathy by size criteria. Thyroid gland is unremarkable . No suspicious bony lesions. No vertebral body compression fractures. Abdomen: The gallbladder is surgically absent. There is marked dilatation of the extrahepatic duct and there is dilatation of the intrahepatic ducts. IMPRESSION: 1. 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 There are extensive venous collaterals present. 2. This is a right-sided injection, and the left brachiocephalic vein is not opacified. It appears small, and may be occluded. 3. The superior vena cava is either a tiny structure or is occluded. It does not opacify on the study. 4. Remote cholecystectomy with biliary ductal dilatation. Comment: Findings were discussed with Dr. Souza at the time of study dictation. Dictated by: Vincent Infante M.D. on 07/09/2022 at 12:26 Approved by: Vincent Infante M.D. on 07/09/2022 at 12:41
--- NOTE | 2022-07-09 10:25 | PC.NURSE ---
Mid line removed from RUE on 07/09/2022. Catheter intact, site clean & dry. Gauze and coban applied. Order given by Dr. Souza.
== END ==
PROVIDERS: PCP Internal Medicine; Referring Provider Surgery; Visit Provider Surgery
DX: T82.598A Other mechanical complication of other cardiac and vascular devices and implants, initial encounter (principal); I82.290 Acute embolism and thrombosis of other thoracic veins; K83.8 Other specified diseases of biliary tract; Z90.49 Acquired absence of other specified parts of digestive tract
CPT/HCPCS: 71275; Q9967